=== PATIENT | female | born 1960 | race Caucasian/White ===

== ENCOUNTER 2016-12-29 15:45 | Outpatient (RCR) | payer OTHER ==
[~2016-12-29 15:45] MED LIST: ASPIRIN 32325 MG/TAB PO; CLEOCIN HCL300 MG PO; DOXYCYCLINE 10100 MG; LEVAQUIN 750MG750 MG PO; NORCO 325 MG-51 TAB PO; PHENERGAN W/CO120 ML PO; PRAVACHOL10 MG PO; PREDNISONE20 MG PO; ZOFRAN 4MG T4 MG/TAB PO
== END 2017-03-26 20:25 ==
LOC: WSPT
DX: Z47.89 Encounter for other orthopedic aftercare (principal); M25.871 Other specified joint disorders, right ankle and foot
CPT/HCPCS: G0283-GP

== ENCOUNTER 2017-01-06 13:28 | Outpatient (RCR) | payer OTHER | END 2017-04-06 | disposition home or self-care (01) | LOC: WSPT | DX: Z09 Encounter for follow-up examination after completed treatment for conditions other than malignant neoplasm (principal); M25.871 Other specified joint disorders, right ankle and foot | CPT/HCPCS: G0283-GP ==